=== PATIENT | male | born 1995 | race Caucasian/White ===

== ENCOUNTER 2017-03-13 18:40 | Emergency (ER) | payer OTHER ==
[~2017-03-13] VITALS: Ht 177.8 cm; Wt 84.5 kg
[2017-03-13 18:46] VITALS: TEMP 37; Ht 177.8 cm; Wt 84.5 kg
[2017-03-13] MEDS ORDERED: MoRPHine SULFATE 4 MG/ML 1 ML CARP\\VIAL IM STA (19:07)
[2017-03-13] MEDS ORDERED: ACETAMINOPHEN 500 MG TAB PO STA (19:07)
[2017-03-13] MEDS ORDERED: KETOROLAC TROMETHAMINE 60 MG/2 ML VIAL IM STA (19:07)
--- NOTE | 2017-03-13 19:50 | DIAGNOSTIC IMAGING REPORT ---
L-SPINE MIN 4 VIEWS ROUTINE HISTORY: 21 years-old Male LBP - fall down steps acute low back pain status post fall COMPARISON: None available TECHNIQUE: 5 views of the lumbar spine FINDINGS: 5 lumbar type vertebral segments are present. No spondylolysis or spondylolisthesis. No significant degenerative changes, acute fracture or subluxation. Soft tissues are unremarkable. Moderate stool in of the ascending colon. IMPRESSION: No acute fracture or subluxation. The above report was generated using voice recognition software. It may contain grammatical, syntax or spelling errors. Electronically signed by: Dante Cardenas M.D. 03/13/2017 7:49 PM Dictated Date/Time: 03/13/2017 7:47 PM
[2017-03-13] MEDS ORDERED: FLEXERIL HOME PACK 10 MG VIAL PO ONE (21:15)
[2017-03-13] MEDS ORDERED: OXYCODONE IR HOME PACK PO ONE (21:15)
[2017-03-13] MEDS ORDERED: CYCL10TA6 PO (21:18)
[2017-03-13] MEDS ORDERED: OXYC1TAB3 PO (21:18)
[2017-03-13] MEDS ORDERED: HYDROmorphone INJ 0.5 MG/0.5 ML SYR IM STA (21:28)
[2017-03-13 21:42] VITALS: BP 137/81; PULSE 70; O2SAT 96
--- NOTE | 2017-03-13 23:59 | EMERGENCY ROOM VISIT NOTE ---
History First contact with patient: 18:57 Chief Complaint: BACK PAIN Stated Complaint: LIMITED MOBILITYLOW BACK PAIN TROUBLE BREATH History of Present Illness The patient is a 21 year old male who presents to the Emergency Room with complaints of lower back pain after tripping and falling down 4 steps yesterday morning. The patient reports landing on his left side, but felt a pop in the lower back. The pain does not radiate into the buttocks or down the legs. He denies any pain radiating into the upper back or abdomen. Deep breathing slightly worsens his lower back discomfort, otherwise denies any shortness of breath, chest pain, neck pain, head injury or loss of consciousness. He currently rates his discomfort a 9 out of 10. He last took ibuprofen last evening, and has taken no medicines today for his pain. Review of Systems 10 system review was performed and was negative except for pertinent positives and negatives as indicated in history of present illness Past Medical/Surgical History Medical Problems: (1) No significant past medical history Surgical Problems: (1) No history of previous surgery Family History Unremarkable Social History Smoking Status: Current Every Day Smoker Alcohol Use: occasionally Marital Status: single Occupation Status: employed Current/Historical Medications Scheduled PRN Cyclobenzaprine Hcl (Flexeril), 10 MG PO TID PRN for spasm Oxycodone Ir (Roxicodone Ir), 1-2 TAB PO Q4H PRN for Pain Physical Exam Vital Signs Date Time Temp Pulse Resp B/P (MAP) Pulse Ox O2 Delivery O2 Flow Rate FiO2 03/13/17 21:42 70 18 137/81 96 03/13/17 19:47 84 17 130/72 96 Room Air 03/13/17 18:46 37.0 106 18 17/95 98 Room Air Physical Exam CONSTITUTIONAL: Healthy and well nourished. Alert and oriented X 3 with positive affect. Patient appears in moderate discomfort from pain. HEENT: Normocephalic, atraumatic. Pupils equal, round and reactive. No hemotympanum, epistaxis, subconjunctival hemorrhage, raccoon's eyes or Benjamin sign. NECK: Full active range of motion without discomfort. RESPIRATORY: Clear to auscultation bilaterally with no wheezing, crackles, rhonchi or stridor. CARDIOVASCULAR: Regular rate and rhythm with no murmurs, rubs or gallops. GASTROINTESTINAL: Bowel sounds present in all quadrants. Soft and nontender to palpation. MUSCULOSKELETAL: Examination shows generalized tenderness to palpation of the lower central lumbar spine and paraspinous muscles. Negative logroll. Negative straight leg raise. Pelvis stable with rock. No tenderness to palpation through the ribs or central thoracic spine. Ankle plantar/ dorsiflexion strength is 5 out of 5 and symmetric bilaterally. Pedal pulses are intact. INTEGUMENTARY: No rash or other significant dermatologic conditions noted. NEUROLOGIC: No focal neurologic deficits noted. Lower extremities are sensory intact. Medical Decision & Procedures ER Provider Diagnostic Interpretation: My interpretation of lumbar spine x-rays does not show any acute fractures, subluxations or lordotic reversal. Radiologist report is as follows: L-SPINE MIN 4 VIEWS ROUTINE HISTORY: 21 years-old Male LBP - fall down steps acute low back pain status post fall COMPARISON: None available TECHNIQUE: 5 views of the lumbar spine FINDINGS: 5 lumbar type vertebral segments are present. No spondylolysis or spondylolisthesis. No significant degenerative changes, acute fracture or subluxation. Soft tissues are unremarkable. Moderate stool in of the ascending colon. IMPRESSION: No acute fracture or subluxation. Medications Administered Medications (Trade) Dose Ordered Sig/Dulce Route Start Time Stop Time Status Last Admin Dose Admin Morphine Sulfate (MoRPHine SULFATE INJ) 4 mg NOW STAT IM 03/13/17 19:07 03/13/17 19:09 DC 03/13/17 19:21 4 MG Ketorolac Tromethamine (Toradol Inj) 60 mg NOW STAT IM 03/13/17 19:07 03/13/17 19:09 DC 03/13/17 19:19 60 MG Acetaminophen (Tylenol Tab) 1,000 mg NOW STAT PO 03/13/17 19:07 03/13/17 19:09 DC 03/13/17 19:16 1,000 MG Oxycodone HCl (Roxicodone Immediate Rel 5MG Home Pack) 1 homepack UD ONCE PO 03/13/17 21:15 03/13/17 21:16 DC 03/13/17 21:29 1 HOMEPACK Cyclobenzaprine HCl (FLEXERIL 10MG Home Pack) 1 homepack UD ONCE PO 03/13/17 21:15 03/13/17 21:16 DC 03/13/17 21:29 1 HOMEPACK Hydromorphone HCl (Dilaudid Inj) 0.5 mg ONE STAT IM 03/13/17 21:28 03/13/17 21:30 DC 03/13/17 21:40 0.5 MG ED Course Patient history and physical exam were performed. Nurse's notes were reviewed. Vital signs were reviewed and were normal. The patient was administered IM morphine and Toradol for his pain. He was also administered Tylenol 1000 mg orally. X-rays of the lumbar spine were normal. The patient reports that his pain was moderately relieved, but requested additional pain medicine after trial ambulation worsened his discomfort. He was administered Dilaudid 0.5 mg IM. The patient was provided home packs and prescriptions for Flexeril and OxyIR 5 mg. He was given instructions and side effects of these medications. No drinking alcohol or driving while taking these medications. He was encouraged to follow-up with his PCP if symptoms are not improving within the next week. He was given instructions to return to the emergency department for symptoms of cauda equina syndrome, which were well briefed with the patient. The patient was happy with plan of care, voiced understanding of all discharge instructions, and rated his discomfort a 4 out of 10 at the conclusion of my exam. Medical Decision [place] Drug Monitoring Program Search Results: patient reviewed within database, no issues identified Medication Reconcilliation Current Medication List: was personally reviewed by me Blood Pressure Screening Patient's blood pressure: Normal blood pressure Impression Primary Impression: Acute lumbar myofascial strain Additional Impression: Fall down steps Departure Information Dispostion Home / Self-Care Condition GOOD Prescriptions Oxycodone Ir (Roxicodone Ir) 5 Mg Tab 1-2 TAB PO Q4H Y for Pain, #15 TAB For Initial Treatment Prov: Nathaniel Lomas PA 03/13/17 Cyclobenzaprine Hcl (FLEXERIL) 10 Mg Tab 10 MG PO TID Y for spasm, #15 TAB Prov: Nathaniel Lomas PA 03/13/17 Referrals No Doctor, Assigned (PCP) Forms HOME CARE DOCUMENTATION FORM, IMPORTANT VISIT INFORMATION Patient Instructions My [facility] Additional Instructions Alternate application of ice and heat to back. Do not sit for long periods of time. Avoid heavy lifting. Ibuprofen 800 mg and/or Tylenol 1000 mg every 8 hours. You may also alternate these medications for more effective pain relief: Ibuprofen --4 HRS--> Tylenol --4 HRS--> ibuprofen --4 HRS--> Tylenol .... OxyIR as needed for worse pain. Flexeril for muscle spasms. Do not drink or drive while taking OxyIR or Flexeril. Follow-up with your family doctor if symptoms persist. Return to the emergency department with any bladder/bowel incontinence, numbness of the inner thighs or profound leg weakness. Problem Qualifiers Primary Impression: Acute lumbar myofascial strain Encounter type: initial encounter Qualified Codes: S39.012A - Strain of muscle, fascia and tendon of lower back, initial encounter Additional Impression: Fall down steps Encounter type: initial encounter Qualified Codes: W10.8XXA - Fall (on) ( from) other stairs and steps, initial encounter
== END 2017-03-13 21:43 | disposition home or self-care (01) ==
LOC: C.EDB 18:42 → C.EDD 21:43
DX: S39.012A Strain of muscle, fascia and tendon of lower back, initial encounter (principal); W10.8XXA Fall (on) (from) other stairs and steps, initial encounter; Y92.9 Unspecified place or not applicable; F17.210 Nicotine dependence, cigarettes, uncomplicated

== ENCOUNTER 2017-04-23 10:32 | Emergency (ER) | payer OTHER ==
[~2017-04-23] VITALS: Ht 180.3 cm; Wt 87.0 kg
[~2017-04-23 10:32] MED LIST: OXYC1TAB3 PO
[2017-04-23 10:56] VITALS: TEMP 37.4; Ht 180.3 cm; Wt 87.0 kg
[2017-04-23] MEDS ORDERED: OXYCODONE/ACETAMINOPHEN 5-325 TAB PO ONE (12:45)
--- NOTE | 2017-04-23 12:47 | DIAGNOSTIC IMAGING REPORT ---
CERVICAL SPINE W/O CT DOSE: 508.86 mGycm HISTORY: Trauma. Pain. L sided neck pain with popping TECHNIQUE: Multiaxial CT images of the cervical spine were performed and reformatted in the sagittal and coronal plane without the use of contrast. A dose lowering technique was utilized adhering to the principles of ALARA. COMPARISON: None. FINDINGS: No fractures. No subluxation. Prevertebral soft tissues and the C1-C2 interval are intact. No pneumothorax. IMPRESSION: No fractures within the cervical spine. The above report was generated using voice recognition software. It may contain grammatical, syntax or spelling errors. Electronically signed by: Oh Qureshi M.D. 04/23/2017 12:45 PM Dictated Date/Time: 04/23/2017 12:44 PM
[2017-04-23 12:55] VITALS: BP 140/76; PULSE 88; O2SAT 9
[2017-04-23] MEDS ORDERED: CYCL10TA6 PO (13:09)
--- NOTE | 2017-04-24 15:01 | EMERGENCY ROOM VISIT NOTE ---
ED Visit Note First contact with patient: 11:17 Chief Complaint: Neck pain. History of Present Illness: Mr. Melara is a 22-year-old white male who ambulates into the ED accompanied by a female complaining of left-sided neck pain. Historically patient denies any previous significant neck injuries or surgeries. Patient reports a proximally 2 hours ago he was working under his car. He reports he dropped it cool and flinched his neck and avoid the tool and felt a popping sensation in the left side of the neck. 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 He reports since the first popping sensation he has been having sharp pain over the left side of the neck in the area of the C5 through C6 trapezius. His pain has been constant. He rates his discomfort 9/10. The pain is radiating down the neck. His pain worsens with all movements of the neck and palpation. He has not identified any alleviating factors related to the pain. He has not taken any medications for pain prior to arrival at the hospital. He denies any associated symptoms including headache, dizziness, lightheadedness, recent upper respiratory tract symptoms, fevers, chills, sweats, skin eruptions, upper extremity weakness/numbness/tingling, nausea/vomiting. Review of Systems: As noted above in history of present illness. 8 body systems were reviewed and found to be negative as noted above. Past Medical History: Asthma. Current Medications: Patient denies. Allergies to Medications: Patient denies. Social History: Patient is currently employed; he feels safe in his home environment; he denies tobacco and alcohol use. Physical Examination: Vital Signs: Date Time Temp Pulse Resp B/P (MAP) Pulse Ox O2 Delivery O2 Flow Rate FiO2 04/23/17 12:55 88 20 140/76 9 Room Air 04/23/17 10:56 37.4 99 18 153/89 98 Room Air GENERAL: 22-year-old male in moderate distress due to pain, nontoxic-appearing, afebrile and hemodynamically stable. NEUROLOGICAL: Awake, alert and oriented to person, place and time. Answering questions appropriately and following commands. Normal gait. Good hand eye coordination. No focal motor sensory deficits. SKIN: Warm, dry and pink. No soft tissue eruptions or trauma noted. HEENT: Atraumatic and normocephalic. BACK: No tenderness over the bony cervical and thoracic spine. Odd or tenderness throughout the left trapezius with obvious spasm. Dramatic decrease in range of motion at the cervical spine due to pain. THORAX: Lungs sounds are clear to auscultation and equal bilaterally with symmetrical chest wall. UPPER EXTREMITIES: No gross bony deformities. No tenderness over the glenohumeral joint, chromium clavicular joint or the scapula. Moderate tenderness as previously noted in the left trapezius muscle with spasm. 5/5 muscle strength in flexion, extension, abduction and abduction and internal and external rotation of the shoulders, flexion and extension of the elbows, pronation and supination the forearms. Bicipital, tricipital and brachial radial deep tendon reflexes intact and equal bilaterally. Throughout the hand the skin was warm and pink and capillary refill is brisk. ED Course: Patient is assessed as noted above. Patient's medication list was reviewed. CT Cervical Spine: Was reviewed by myself and read by the radiologist showing no acute fractures or subluxations of the cervical spine. Patient was given one Percocet 5/325 mg tablet by mouth for pain. Patient was placed in a soft cervical collar. Patient is educated about today's findings and instructed on his treatment plan ; he verbalized understanding and agreement with this plan. Clinical Impression: Left trapezius muscle spasm. Disposition: Patient discharged home in stable condition accompanied by his girlfriend; prior to departure he was reassessed and subjectively reported he was feeling worse and rated his discomfort 10/10. Plan: Patient was encouraged to alternate ibuprofen and acetaminophen and ibuprofen every 3 hours, hot and cold therapy, use a cervical collar and a prescription for Flexeril. Patient is encouraged to follow-up with PCP if no better in 6 days. Patient is encouraged return ED for worsening/uncontrolled pain, upper extremity weakness/numbness/tingling, fevers or any new/concerning symptoms.
== END 2017-04-23 13:24 | disposition home or self-care (01) ==
LOC: C.EDB 10:33 → C.EDD 13:24
DX: M62.838 Other muscle spasm (principal)